=== PATIENT | female | born 1970 | race Hispanic/Latino ===

== ENCOUNTER 2021-11-14 07:49 | Outpatient (CLI) | payer OTHER | END 2021-11-14 07:50 | disposition home or self-care (01) | LOC: BICULT 07:49 | PROVIDERS: ATTEND Obstetrics & Gynecology Gynecologic Oncology | DX: R19.00 Intra-abdominal and pelvic swelling, mass and lump, unspecified site (principal); N83.8 Other noninflammatory disorders of ovary, fallopian tube and broad ligament | CPT/HCPCS: 76856 ==